=== PATIENT | female | born 1965 | race Caucasian/White ===

== ENCOUNTER 2017-05-25 08:57 | Emergency (ER) | payer OTHER ==
[~2017-05-25] VITALS: Ht 172.7 cm; Wt 84.0 kg
[2017-05-25 09:02] VITALS: TEMP 36.7; Ht 172.7 cm; Wt 84.0 kg
--- NOTE | 2017-05-25 09:43 | DIAGNOSTIC IMAGING REPORT ---
LEFT SHOULDER MIN 2 VIEWS ROUTINE CLINICAL HISTORY: Left shoulder pain status post trauma COMPARISON: None DISCUSSION: No fractures or dislocations are visualized. IMPRESSION: No fractures or dislocations identified. Electronically signed by: Asaf Argueta M.D. 05/25/2017 9:42 AM Dictated Date/Time: 05/25/2017 9:41 AM
--- NOTE | 2017-05-25 10:05 | EMERGENCY ROOM VISIT NOTE ---
ED Visit Note First contact with patient: 09:11 CHIEF COMPLAINT: Fall/left shoulder pain HISTORY OF PRESENT ILLNESS: This 51-year-old female presents the ER with chief complaint of left shoulder pain secondary to fall 2 days ago. The patient states that she fell in the shower 2 days ago and hit the left side of her forehead and landed on her left shoulder. The patient denies any loss of consciousness, dizziness, visual changes or any neck pain. The patient states that 16 years ago she had an injury to her left shoulder and since that time her shoulder will dislocate and then popped back into place on its own. She states since she fell it seems to be popping in and out more frequently and now she states that it feels like it is "partially dislocated. She has limited range of motion. The patient is from [place] and is on vacation [place] the [place] and wants to make sure that it is not broken. REVIEW OF SYSTEMS: 6 system review was performed and was negative unless stated otherwise in history of present illness. PMH: The patient is healthy; Prior left shoulder injury and dislocation. Endometriosis SOCIAL HISTORY: Patient lives in [place]. The patient lives with her 15-year- old son. The patient denies any tobacco use but admits to occasional alcohol use. PHYSICAL EXAM: Vital Signs: Were reviewed Reviewed nurse's notes. GENERAL: 51- year-old white female appears in no acute distress. MENTAL Status: Alert and oriented 3. HEAD: Atraumatic, nontender to palpation throughout. No lacerations noted. EYES: PERRLA, EOMs intact. EARS: Canals clear. TMs without hemotympanum. Neuro: Cranial nerves II through XII intact. Fine motor intact with alternating finger motions. Cerebellar function intact with finger- to-nose. LEFT SHOULDER: No gross bony deformity noted. The patient is tender to palpation over the anterior aspect of the shoulder joint. The patient has limited range of motion in all directions secondary to pain. EMERGENCY DEPARTMENT COURSE: The patient was evaluated. The patient was offered pain medication but declined. X-ray of the left shoulder was ordered and interpreted by the radiologist and myself. DIAGNOSTICS:LEFT SHOULDER MIN 2 VIEWS ROUTINE CLINICAL HISTORY: Left shoulder pain status post trauma COMPARISON: None DISCUSSION: No fractures or dislocations are visualized. IMPRESSION: No fractures or dislocations identified. Electronically signed by: Asaf Argutea M.D. 05/25/2017 9:42 AM Dictated Date/Time: 05/25/2017 9:41 AM The patient was informed of the findings. The patient was placed in a shoulder sling and discharged home in stable condition. DIAGNOSIS: Left shoulder pain DISCHARGE INSTRUCTIONS & TREATMENT: Ibuprofen 600 mg every 6 hours with food for pain. Keep arm in sling until evaluated by orthopedics. Call orthopedics when you return home for follow-up appointment for further evaluation. Current/Historical Medications No Active Prescriptions or Reported Meds Allergies Coded Allergies: No Known Allergies (Unverified , 05/25/17) Vital Signs Date Time Temp Pulse Resp B/P (MAP) Pulse Ox O2 Delivery O2 Flow Rate FiO2 05/25/17 09:02 36.7 64 18 119/77 98 Room Air Departure Information Prescriptions No Active Prescriptions or Reported Meds Referrals No Doctor, Assigned (PCP) Patient Instructions [facility]
[2017-05-25 10:12] VITALS: BP 121/70; PULSE 71; O2SAT 96
== END 2017-05-25 10:13 | disposition home or self-care (01) ==
LOC: C.EDB 08:59 → C.EDA 10:13
DX: M25.512 Pain in left shoulder (principal); W18.2XXA Fall in (into) shower or empty bathtub, initial encounter